=== PATIENT | male | born 1960 | race Caucasian/White ===

== ENCOUNTER 2020-03-15 13:35 | Outpatient (CLI) | payer OTHER, SELFPAY ==
--- NOTE | ~2020-03-15 | CT_ITS ---
EXAMINATION: CT chest w con DATE: 03/15/2020 14:13 INDICATION: Left lung cancer TECHNIQUE: Transaxial computed tomographic images of the chest were obtained after the administration of 75 cc of Omnipaque 350 intravenous contrast. The dose-length product (DLP) was 149.04 mGy-cm. Ite rative reconstruction was used. COMPARISON: 12/21/2019 FINDINGS: A 3.2 x 3.2 cm left perihilar mass is stable since the comparison examination. There is als o a stable prevascular lymph node measuring 10 mm in short axis. There is moderate emphysema. Subpleu ral scarring is seen anteriorly in the left upper lobe and posterior medially in the left lower lobe. There is no pleural effusion or pneumothorax. The heart size is normal. A left internal jugular Port -A-Cath ends with its tip in the midsuperior vena cava. Bilateral adrenal masses are stable. IMPRESSION: 1. Stable left hilar mass, consistent with known malignancy. 2. Stable prevascular lymph node, possibly metastatic disease. 3. Stable bilateral adrenal masses, benign versus metastatic. Reviewed, dictated and finalized at location B.
== END 2020-03-15 13:36 | disposition home or self-care (01) ==
LOC: ANHIMG 13:38
PROVIDERS: PCP Physician Assistant; Visit Provider Internal Medicine Medical Oncology
DX: C34.82 Malignant neoplasm of overlapping sites of left bronchus and lung (principal); D44.12 Neoplasm of uncertain behavior of left adrenal gland; Z72.0 Tobacco use; Z71.9 Counseling, unspecified; M79.602 Pain in left arm; R91.8 Other nonspecific abnormal finding of lung field
CPT/HCPCS: 71260; Q9967

== ENCOUNTER 2023-01-04 07:14 | Outpatient (CLI) | payer OTHER, SELFPAY ==
[2023-01-04 08:33] LABS: Cortisol Baseline 4.62 ug/dL
== END 2023-01-04 07:15 | disposition home or self-care (01) ==
LOC: ANHOUTPT 07:16
PROVIDERS: PCP Physician Assistant; Visit Provider Internal Medicine Endocrinology, Diabetes & Metabolism
DX: E27.8 Other specified disorders of adrenal gland (principal); I05.9 Rheumatic mitral valve disease, unspecified; E03.9 Hypothyroidism, unspecified
CPT/HCPCS: 36415; 36592; 82533; 96372; J0834